=== PATIENT | female | born 1965 ===

== ENCOUNTER 2018-03-15 18:42 | Emergency (ER) | payer BC ==
[2018-03-15 19:00] VITALS: BP 145/80
[2018-03-15] MEDS ORDERED: Sulfamethox/Trimethoprim DS 800/160* TAB PO ONE (19:47)
--- NOTE | 2018-03-15 20:04 | UC ---
Complaint Female HPI - HPI Summary HPI Summary: PATIENT HAS HAD DYSURIA AND FREQUENCY FOR ALMOST 2 WEEKS. THOUGHT IT WOULD EVENTUALLY GO AWAY SO SHE DID NOT SEEK TREATMENT. TODAY SHE DEVELOPED SHARP LEFT LOWER ABDOMINAL PAIN AND FLANK PAIN. NO FEVER OR NAUSEA. LAST UTI WAS ABOUT 30 YEARS AGO. - History Of Current Complaint Chief Complaint: UCAbdominalPain Stated Complaint: ABD PAIN,POSS UTI Time Seen by Provider: 03/15/18 19:12 Hx Obtained From: Patient Hx Last Menstrual Period: 6-7 years Onset/Duration: Gradual Onset, Lasting Weeks, Still Present Timing: Constant Severity Initially: Moderate Severity Currently: Moderate Pain Intensity: 6 Pain Scale Used: 0-10 Numeric Character: Sharp, Cramping Aggravating Factor(s): Urination Alleviating Factor(s): Nothing Associated Signs And Symptoms: Positive: Back Pain. Negative: Fever, Vaginal Discharge, Nausea - Allergies/Home Medications Allergies/Adverse Reactions: Allergies Allergy/AdvReac Type Severity Reaction Status Date / Time No Known Allergies Allergy Verified 03/15/18 19:01 Home Medications: Home Medications BuPROPion XL* [Bupropion XL*] 300 mg PO DAILY 03/15/18 [History Confirmed ] Topiramate [Topamax] 50 mg PO BEDTIME 03/15/18 [History Confirmed 03/15/18] PMH/Surg Hx/FS Hx/Imm Hx Previously Healthy: Yes Other History Of: Negative For: Anticoagulant Therapy - Surgical History Surgical History: Yes Surgery Procedure, Year, and Place: CERVICAL FUSION C4-5, TUBAL - Family History Known Family History: Negative: Hypertension - Social History Alcohol Use: None Substance Use Type: None Smoking Status (MU): Never Smoked Tobacco Review of Systems Constitutional: Negative Respiratory: Negative Cardiovascular: Negative Gastrointestinal: Abdominal Pain Genitourinary: Dysuria, Frequency All Other Systems Reviewed And Are Negative: Yes Physical Exam Triage Information Reviewed: Yes Appearance: Well-Appearing, No Pain Distress, Well-Nourished Vital Signs: Initial Vital Signs Temp 97.9 F 03/15/18 18:53 Pulse 69 03/15/18 18:53 Resp 16 03/15/18 18:53 BP 145/80 03/15/18 18:53 Pulse Ox 99 03/15/18 18:53 Laboratory Tests 03/15/18 19:08 POC Urine Color Yellow POC Urine Clarity Clear POC Urine pH 7.0 POC Ur Specif [place] 1.015 POC Urine Protein Negative POC Ur Glucose (UA) Negative POC Urine Ketones Negative POC Urine Blood Trace-intact A POC Urine Nitrite Negative POC Urine Bilirubin Negative POC Urine Urobilinogen 0.2 POC U Leukocyte Esteras 2+ A Vital Signs Reviewed: Yes Eyes: Positive: Conjunctiva Clear ENT: Positive: Hearing grossly normal Neck: Positive: Supple Respiratory: Positive: No respiratory distress, No accessory muscle use Cardiovascular: Positive: Pulses Normal Abdomen Description: Positive: Soft, CVA Tenderness (L), Other: - MILDLY TENDER SUPRAPUBIC. Negative: CVA Tenderness (R), Distended, Guarding Bowel Sounds: Positive: Present Musculoskeletal: Positive: No Edema Neurological: Positive: Alert Psychological: Positive: Age Appropriate Behavior Skin: Negative: rashes Complaint Female Dx - Course Course Of Treatment: DISCUSSED POSSIBILITY OF KIDNEY STONE. ADVISED THAT TRANSFER TO THE ED FOR IMAGING WOULD BE THE WAY TO EVALUATE FOR THIS. PATIENT PREFERS TO TAKE ANTIBIOTIC TREATMENT FOR UTI AND GO TO THE ED IF HER SYMPTOMS DO NOT IMPROVE. - Differential Dx/Diagnosis Provider Diagnoses: UTI Discharge - Sign-Out/Discharge Documenting (check all that apply): Patient Departure All imaging exams completed and their final reports reviewed: No Studies - Discharge Plan Condition: Stable Disposition: HOME Prescriptions: Sulfamethox/Trimethoprim DS* [Bactrim DS 800/160 TAB*] 1 tab PO BID #12 tab Patient Education Materials: Urinary Tract Infection in Women (ED) Referrals: Cherelle Roberts MD [Primary Care Provider] - If Needed Additional Instructions: TAKE THE ANTIBIOTIC TWICE DAILY PRESCRIBED. YOUR URINE HAS BEEN SENT FOR CULTURE TO ENSURE THAT YOU'RE ON THE APPROPRIATE ANTIBIOTIC TREATMENT. WE WILL CALL YOU IF YOUR MEDICATION NEEDS TO BE CHANGED. GO TO THE ED WITHOUT FAIL IF YOU ARE NOT NOTICING SIGNIFICANT IMPROVEMENT OVER THE NEXT 48 HOURS OR IF YOU DEVELOP FEVER, NAUSEA, WORSENING PAIN OR ANY OTHER CONCERNING SYMPTOMS. - Billing Disposition and Condition Condition: STABLE Disposition: Home
== END 2018-03-15 20:02 | disposition home or self-care (01) ==
LOC: UCEAST 18:42
DX: N39.0 Urinary tract infection, site not specified (principal)
CPT/HCPCS: 81003; 87086; 99212; A9270-GY; G0463